=== PATIENT | male | born 1970 | race Caucasian/White ===

== ENCOUNTER 2017-01-02 14:40 | Emergency (ER) | payer OTHER ==
[~2017-01-02] VITALS: Ht 182.9 cm; Wt 107.6 kg
[~2017-01-02 14:40] MED LIST: ALPRAZOLAM1 MG PO; AMBIEN5 MG PO; Ambien PO; BACKACHE RELIE580 MG PO; CLOPIDOGREL75 MG PO; DILAUDID2 MG PO; DILAUDID4 MG PO; FENTANYL1 EAC5 TD; FLOMAX0.4 MG PO; Fish Oil PO; LIDODERM 5% P1 PATCH TD; LYRICA75 MG PO; MELATONIN5 M1 PO; MIRALAX17 GM PO; MIRALAX255 GM PO; MOTRIN800 MG PO; NAPROSYN500 MG PO; NOHOMEMEDS; OMEPRAZOLE; OXYCODONE-APAP1 EAC6 PO; PERCOCET 5/31 TABLET PO; PERCOCET 7.51 TABLET PO; PREDNISONE20 MG PO; ROBAXIN500 MG PO; THERAGRAN1 TABLET PO; TYLENOL EXTRA500 MG PO; VALIUM5 MG PO; XANAX0.5 MG PO; Xanax PO; ZOFRAN4 MG PO
[2017-01-02 18:51] LABS: ADD MIUA? YES; BILIRUBIN NEGATIVE; BLOOD NEGATIVE; COLOR YELLOW ((YELLOW)); GLUCOSE (STRIP) NEGATIVE; KETONES NEGATIVE; LEUKOCYTES NEGATIVE; NITRITE NEGATIVE; PROTEIN (STRIP) NEGATIVE
[2017-01-02 18:54] LABS: HEMATOCRIT 50.6 % (38.0-50.0); MCH 30.9 PG (29.0-34.0); MCV 90.8 FL (86-99); RBC DIS.WIDTH-CV 12.6 % (11.8-14.6); RBC DIS.WIDTH-SD 42.3 % (39-53); RED BLOOD COUNT 5.57 M/uL (4.00-5.50); WHITE BLOOD COUNT 12.5 K/uL (4.1-10.2)
[2017-01-02 18:56] LABS: MEAN PLAT.VOLUME 10.2 uM^3 (9.0-12.4); PLATELET COUNT 201 K/uL (156-360)
[2017-01-02 19:06] LABS: CHLORIDE 109 mEq/L (99-109)
[2017-01-02 19:07] LABS: AMYLASE 48 IU/L (1-118); POTASSIUM 4.5 mEq/L (3.7-5.4); SODIUM 142 mEq/L (136-147)
[2017-01-02 19:09] LABS: GLUCOSE 105 mg/dL (70-99)
[2017-01-02 19:10] LABS: ANION GAP 9 MEQ/L (2-14)
[2017-01-02 19:11] LABS: TOTAL BILIRUBIN 0.5 mg/dL (0.0-1.0)
[2017-01-02 19:12] LABS: ALKALINE PHOSPHATASE 52 IU/L (3-129); GFR ESTIMATE (CALCULATED) > 59 mL/min/
[2017-01-02 19:14] LABS: UREA NITROGEN (BUN) 16 mg/dL (9-23)
[2017-01-02 19:16] LABS: AMORPHOUS PHOSPHATE CRYSTALS 3+; BACTERIA NONE SEEN /HPF; CRYSTALS PRESENT; EPITHELIAL CELLS NONE SEEN /HPF; MUCUS NONE SEEN /LPF; RED BLOOD CELLS 0-5 /HPF (0-5); UCUL ADDED? NO; WHITE BLOOD CELLS 0-5 /HPF (0-5)
[2017-01-02 19:16] LABS: LIPASE 30 U/L (1.0-51.0)
[2017-01-02 19:18] LABS: TROP-I INTERPRETATION NEGATIVE; TROPONIN-I < 0.01 ng/mL (0.0-0.30)
[2017-01-02] MEDS ORDERED: MEDROL DOSEPAK4 MG PO (20:03)
[2017-01-02] MEDS ORDERED: PERCOCET 5/31 TABLET PO (20:03)
[2017-01-02] MEDS ORDERED: VALIUM5 MG PO (20:03)
[2017-01-02] MEDS ORDERED: NAPROSYN500 MG PO (20:05)
[2017-01-02] MEDS ORDERED: ZOLPIDEM TARTRA10 MG PO (20:34)
[2017-01-02 20:37] VITALS: BP 120/86
== END 2017-01-02 20:40 | disposition home or self-care (01) ==
LOC: EME 14:40
PROVIDERS: Physician Assistant
DX: M54.41 Lumbago with sciatica, right side (principal); R10.12 Left upper quadrant pain; F17.200 Nicotine dependence, unspecified, uncomplicated
CPT/HCPCS: 80053; 81003; 82150; 83690; 84484; 85027; 93005; 99281; 99284; J2930

== ENCOUNTER 2017-10-03 23:25 | Emergency (ER) | payer OTHER ==
[~2017-10-03] VITALS: Ht 182.9 cm; Wt 96.9 kg
[~2017-10-03 23:25] MED LIST changes: +MEDROL DOSEPAK4 MG PO; +ZOLPIDEM TARTRA10 MG PO
[2017-10-04] MEDS ORDERED: PERCOCET 5/31 TABLET PO (01:32)
[2017-10-04 01:43] VITALS: BP 130/90
== END 2017-10-04 01:46 | disposition home or self-care (01) ==
LOC: EXP 23:25 → EME 23:25 → EXP 10-04 01:46
PROC: 2W3CX1Z Immobilization of Right Lower Arm using Splint (ICD-10-PCS; principal; 2017-10-03)
DX: M79.641 Pain in right hand (principal); M25.531 Pain in right wrist; W00.0XXA Fall on same level due to ice and snow, initial encounter; Y93.H1 Activity, digging, shoveling and raking; M19.041 Primary osteoarthritis, right hand; F17.200 Nicotine dependence, unspecified, uncomplicated
CPT/HCPCS: 73110; 73130; 99281; 99284

== ENCOUNTER 2018-01-18 12:51 | Observation (INO) | payer OTHER ==
[~2018-01-18] VITALS: Ht 182.9 cm; Wt 109.6 kg
[2018-01-18 14:15] LABS: HEMATOCRIT 49.8 % (38.0-50.0); HEMOGLOBIN 17.7 G/DL (12.5-16.6); MCH 32.1 PG (29.0-34.0); MCHC 35.5 G/DL (30.0-36.0); MCV 90.2 FL (86-99); RBC DIS.WIDTH-CV 12.5 % (11.8-14.6); RBC DIS.WIDTH-SD 41.9 % (39-53); RED BLOOD COUNT 5.52 M/uL (4.00-5.50); WHITE BLOOD COUNT 9.3 K/uL (4.1-10.2)
[2018-01-18 14:21] LABS: PLATELET COUNT 198 K/uL (156-360)
[2018-01-18 14:29] LABS: CHLORIDE 106 mEq/L (99-109); POTASSIUM 4.3 mEq/L (3.7-5.4)
[2018-01-18 14:30] LABS: SODIUM 142 mEq/L (136-147)
[2018-01-18 14:31] LABS: GLUCOSE 96 mg/dL (70-99)
[2018-01-18 14:35] LABS: CREATININE 0.8 mg/dL (0.6-1.3); GFR ESTIMATE (CALCULATED) > 59 mL/min/ (58.99-99999)
[2018-01-18 14:36] LABS: UREA NITROGEN (BUN) 10 mg/dL (9-23)
[2018-01-18 14:38] LABS: TROP-I INTERPRETATION NEGATIVE; TROPONIN-I < 0.01 ng/mL (0.0-0.30)
[2018-01-18] MEDS ORDERED: XANAX1 MG PO (14:55)
[2018-01-18] MEDS ORDERED: MOTRIN800 MG PO (14:55)
[2018-01-18] MEDS ORDERED: BIOFREEZE TP (14:56)
[2018-01-18] MEDS ORDERED: ALLEGRA ALLERG180 MG PO (14:56)
[2018-01-18 15:31] LABS: D-DIMER ELISA < 150.00 ng/mLDDU (<230)
[2018-01-18 16:30] VITALS: BP 120/82
[2018-01-18 19:49] VITALS: BP 119/79
[2018-01-18 20:03] LABS: TROP-I INTERPRETATION NEGATIVE; TROPONIN-I < 0.01 ng/mL (0.0-0.30)
[2018-01-19] VITALS: BP 116/69
[2018-01-19 02:36] LABS: TROP-I INTERPRETATION NEGATIVE; TROPONIN-I < 0.01 ng/mL (0.0-0.30)
[2018-01-19 04:01] VITALS: BP 101/57
[2018-01-19 08:09] VITALS: BP 111/55
[2018-01-19] MEDS ORDERED: ASPIRIN81 M2 PO (09:50)
== END 2018-01-19 11:22 | disposition home or self-care (01) ==
LOC: EME 12:51 → 4SOUTH 14:52 → EDOF 14:52 → ENRESERV 14:55 → 4SOUTH 16:03 → ENPENDDIS 01-19 → 4SOUTH 01-19 11:22
PROVIDERS: Emergency Medicine; Internal Medicine
DX: R07.9 Chest pain, unspecified (principal); F41.9 Anxiety disorder, unspecified; F17.210 Nicotine dependence, cigarettes, uncomplicated; Z82.49 Family history of ischemic heart disease and other diseases of the circulatory system; G89.29 Other chronic pain; M54.9 Dorsalgia, unspecified; Z90.49 Acquired absence of other specified parts of digestive tract; Z88.2 Allergy status to sulfonamides; Z88.5 Allergy status to narcotic agent; Z88.1 Allergy status to other antibiotic agents; Z88.8 Allergy status to other drugs, medicaments and biological substances; Z91.041 Radiographic dye allergy status
CPT/HCPCS: 71045; 80048; 84484; 85027; 85379; 93005; 99281; 99285; G0378; J2405